=== PATIENT | male | born 1990 | race Caucasian/White ===

== ENCOUNTER 2020-10-08 12:18 | Emergency (ER) | payer OTHER ==
[~2020-10-08 12:18] MED LIST: IBUPROFEN800 MG PO; MAGNESIUM-ALUM360 ML SSP; NORCO 5-325 TA1 EACH PO
[2020-10-08] MEDS ORDERED: NORCO 5-325 TA1 EACH PO (12:56)
== END 2020-10-08 13:25 | disposition home or self-care (01) ==
LOC: FER 12:18
DX: S62.623A Displaced fracture of middle phalanx of left middle finger, initial encounter for closed fracture (principal); W22.8XXA Striking against or struck by other objects, initial encounter; Y92.89 Other specified places as the place of occurrence of the external cause; Y99.0 Civilian activity done for income or pay
CPT/HCPCS: 73130

== ENCOUNTER 2020-10-17 08:36 | Emergency (ER) | payer OTHER ==
[2020-10-17 09:12] LABS: BASOPHIL 0.4 % (0-2); EOSINOPHIL 0.4 % (0-5); HCT 52.3 % (42.0-52.0); HGB 17.7 g/dl (13.2-18.0); LYMPHOCYTE 27.1 % (15-48); MCH 28.6 pg (25.0-31.0); MCHC 33.8 g/dL (32.0-36.0); MCV 84.5 fL (78.0-100.0); MONOCYTE 6.7 % (0-12); NEUTROPHIL 65.1 % (41-80); NRBC 0; PLT 217 K/uL (150-400); RBC 6.19 M/uL (4.70-6.00); RDW 12.6 % (11.5-14.0); WBC 7.6 K/uL (4.0-10.5)
[2020-10-17 09:16] LABS: ALBUMIN 4.5 g/dL (3.4-5.0); BILIRUBIN - TOTAL 0.6 mg/dL (0.2-1.0); BUN/CREAT RATIO (CALC) 18.8 RATIO; CREATININE 0.64 mg/dL (0.67-1.17); GLOBULIN (CALCULATION) 3.8 g/dL; POTASSIUM 3.9 mmol/L (3.5-5.1); TOTAL PROTEIN 8.3 g/dL (6.4-8.2)
[2020-10-17] MEDS ORDERED: LISINOPRIL 20MG20 MG PO (12:05)
[2020-10-17] MEDS ORDERED: NITROQUIK SL0.4 MG SL (12:05)
== END 2020-10-17 12:06 | disposition home or self-care (01) ==
LOC: FER 08:36
PROVIDERS: Emergency Medicine
DX: I10 Essential (primary) hypertension (principal); L50.9 Urticaria, unspecified; R42 Dizziness and giddiness; Z88.5 Allergy status to narcotic agent; Z79.899 Other long term (current) drug therapy
CPT/HCPCS: 36415; 71045; 80053; 84484; 85025; J1200

== ENCOUNTER 2021-12-08 19:36 | Emergency (ER) | payer OTHER ==
[~2021-12-08 19:36] MED LIST changes: +LISINOPRIL 20MG20 MG PO; +NITROQUIK SL0.4 MG SL
[2021-12-08 20:10] LABS: BASOPHIL 0.4 % (0-2); EOSINOPHIL 0.9 % (0-5); HCT 47.6 % (42.0-52.0); HGB 15.9 g/dl (13.2-18.0); LYMPHOCYTE 21.8 % (15-48); MCH 28.7 pg (25.0-31.0); MCHC 33.4 g/dL (32.0-36.0); MCV 85.9 fL (78.0-100.0); MONOCYTE 7.9 % (0-12); MPV 10.8 fL (6.0-9.5); NEUTROPHIL 68.6 % (41-80); NRBC 0; PLT 209 K/uL (150-400); RBC 5.54 M/uL (4.70-6.00); RDW 12.3 % (11.5-14.0); WBC 7.6 K/uL (4.0-10.5)
[2021-12-08 20:31] LABS: ALBUMIN 4.2 g/dL (3.4-5.0); BILIRUBIN - TOTAL 0.2 mg/dL (0.2-1.0); BUN/CREAT RATIO (CALC) 16.9 RATIO; CREATININE 0.71 mg/dL (0.67-1.17); GLOBULIN (CALCULATION) 3.3 g/dL; POTASSIUM 3.5 mmol/L (3.5-5.1); TOTAL PROTEIN 7.5 g/dL (6.4-8.2)
[2021-12-08 20:45] LABS: CORONAVIRUS 2019 SARS-COV-2 NEGATIVE (NEGATIVE); INFLUENZA A NAA NEGATIVE (NEGATIVE)
[2021-12-08 21:19] LABS: ECSTASY (MDMA) NEGATIVE (NEGATIVE); MARIJUANA (THC) NEGATIVE (NEGATIVE); METHADONE NEGATIVE (NEGATIVE); OPIATES NEGATIVE (NEGATIVE)
[2021-12-08 21:20] LABS: AMPHETAMINES NEGATIVE (NEGATIVE); BARBITURATES NEGATIVE (NEGATIVE); OXYCODONE NEGATIVE (NEGATIVE)
[2021-12-08] MEDS ORDERED: ONDANSETRON ODT4 MG PO (22:09)
== END 2021-12-08 22:35 | disposition home or self-care (01) ==
LOC: FER 19:36
PROVIDERS: Emergency Medicine
DX: R07.89 Other chest pain (principal); R51.9 Headache, unspecified; R11.2 Nausea with vomiting, unspecified; I10 Essential (primary) hypertension; Z79.899 Other long term (current) drug therapy; Z20.822 Contact with and (suspected) exposure to COVID-19
CPT/HCPCS: 36415; 70450; 71045; 80053; 80305; 83690; 84484; 85025; 93005; J0780; J1200; J1885; J2405; J7030; U0002

== ENCOUNTER 2022-05-28 05:01 | Emergency (ER) | payer OTHER ==
[~2022-05-28 05:01] MED LIST changes: +ONDANSETRON ODT4 MG PO
[2022-05-28] MEDS ORDERED: AMOX TR-K CLV1 EAC4 PO (06:11)
== END 2022-05-28 06:41 | disposition home or self-care (01) ==
LOC: FER 05:01
DX: S61.211A Laceration without foreign body of left index finger without damage to nail, initial encounter (principal); I10 Essential (primary) hypertension; Z23 Encounter for immunization; Z79.899 Other long term (current) drug therapy; W26.0XXA Contact with knife, initial encounter; Y92.89 Other specified places as the place of occurrence of the external cause; Y99.0 Civilian activity done for income or pay
CPT/HCPCS: 90471; 90715